=== PATIENT | female | born 1960 | race Caucasian/White ===

== ENCOUNTER 2017-01-27 15:29 | Inpatient (IN) | payer MEDICAID, OTHER ==
[~2017-01-27] VITALS: Ht 154.9 cm; Wt 96.7 kg
[~2017-01-27 15:29] MED LIST: LISI-661 PO; SERT50TA12 PO
[2017-01-27] MEDS ORDERED: TRAZ-144 PO (15:32)
[2017-01-27 16:13] LABS: BASOPHILS % (AUTO) 0.6 % (0.0-2.0); EOSINOPHILS % (AUTO) 0.5 % (1.0-6.0); HEMATOCRIT 36.3 % (36-46); HEMOGLOBIN 12.6 g/dL (12.0-16.0); LYMPHOCYTES # (AUTO) 1.7 K/uL (1.0-4.8); LYMPHOCYTES % (AUTO) 28.7 % (22.0-44.0); MEAN CORPUSCULAR HEMOGLOBIN 32.7 pg (26.0-34.0); MEAN CORPUSCULAR HGB CONC 34.8 G/dL (31.0-37.0); MEAN CORPUSCULAR VOLUME 94 fL (80-100); MONOCYTES # (AUTO) 0.4 K/uL (0.1-1.0); MONOCYTES % (AUTO) 7.3 % (2.0-9.0); NEUTROPHILS # (AUTO) 3.8 K/uL (1.8-7.7); NEUTROPHILS % (AUTO) 62.9 % (40.0-70.0); PLATELET COUNT (AUTO) 263 K/uL (150-450); RED BLOOD CELL COUNT(AUTO) 3.87 MIL/uL (4.00-5.20); RED CELL DISTRIBUTION WIDTH 14.9 % (11.5-14.5)
[2017-01-27 16:25] LABS: ANION GAP 11 mmol/L (8-16); CALCIUM, TOTAL 8.8 mg/dL (8.8-10.5); CARBON DIOXIDE 26 mmol/L (22-29); CHLORIDE 105 mmol/L (98-107); CREATININE 0.79 mg/dL (0.60-1.30); GLOMERULAR FILTR. RATE CALC > 60 mL/min (>60); POTASSIUM 3.9 mmol/L (3.5-5.1); SODIUM SERUM 142 mmol/L (136-145); UREA NITROGEN, BLOOD 13 mg/dL (7-18)
[2017-01-27 16:31] LABS: ALANINE AMINOTRANSFERASE 21 U/L (12-78); ALBUMIN 3.6 g/dL (3.4-5.0); ASPARTATE AMINOTRANSFERASE 14 U/L (15-37); BILIRUBIN,TOTAL 0.2 mg/dL (0.1-1.0); TOTAL PROTEIN, SERUM 7.6 g/dL (6.4-8.2)
[2017-01-27] MEDS ORDERED: LISI-662 PO (16:58)
[2017-01-27] MEDS ORDERED: HALOPERIDOL 5 MG TABLET PO PRN (17:00)
[2017-01-27] MEDS ORDERED: LORazepam 2 MG TABLET PO PRN (17:00)
[2017-01-27] MEDS ORDERED: ZOLPIDEM TARTRATE 10 MG TABLET PO PRN (17:00)
[2017-01-27 17:39] LABS: CHOL/HDL RATIO 3.4 (3.9-5.7); THYROID STIMULATING HORMONE 1.85 uIU/mL (0.36-3.74)
[2017-01-27 19:10] VITALS: BP 149/78
[2017-01-27] MEDS: BusPIRone HCL 5 MG TABLET PO SCH (19:10)
[2017-01-27 19:31] LABS: APPEARANCE,URINE CLEAR (CLEAR); GLUCOSE, URINE (UA) NEGATIVE (NEGATIVE); KETONES,URINE NEGATIVE (NEGATIVE); LEUKOCYTE ESTERASE ,URINE LARGE (NEGATIVE); OCCULT BLOOD,URINE NEGATIVE (NEGATIVE); PROTEIN,URINE NEGATIVE (NEGATIVE)
[2017-01-27 19:34] LABS: ADD UA MICROSCOPIC YES
[2017-01-27 19:48] LABS: RBC,URINE 0-2 /HPF (0-2); SQUAMOUS EPITHELIAL CELL,UR Few /LPF (None Seen); WBC,URINE 26-50 /HPF (0-5)
[2017-01-27] MEDS ORDERED: PNEUMOCOCCAL VACCINE POLYVALENT 0.5 ML VIAL [PPSV23] IM ONE (20:15)
[2017-01-27] MEDS: TraZODone HCL 150 MG TABLET PO SCH (20:22)
[2017-01-27] MEDS: OLANZapine 10 MG TABLET PO SCH (20:22)
[2017-01-28] MEDS: FLUoxetine HCL 20 MG CAPSULE PO SCH (09:08)
[2017-01-28] MEDS: LISINOPRIL 20 MG TABLET PO SCH (09:08)
[2017-01-28] MEDS: BusPIRone HCL 5 MG TABLET PO SCH ×3 (09:08→17:22)
[2017-01-28 09:32] VITALS: BP 171/83
[2017-01-28] MEDS: LEVOFLOXACIN 500 MG TABLET PO SCH (13:37)
[2017-01-28] MEDS: AmLODIPine BESYLATE 5 MG TABLET PO SCH (13:37)
[2017-01-28] MEDS ORDERED: IBUPROFEN 400 MG TABLET PO PRN (15:30)
[2017-01-28] MEDS ORDERED: LISINOPRIL 20 MG TABLET PO SCH (15:30)
[2017-01-28] MEDS ORDERED: ACETAMINOPHEN 325 MG TABLET PO PRN (15:30)
[2017-01-28 16:15] VITALS: BP 121/64
[2017-01-28] MEDS ORDERED: CIPROFLOXACIN HCL 500 MG TABLET PO SCH (17:00)
[2017-01-28] MEDS: TraZODone HCL 150 MG TABLET PO SCH (21:23)
[2017-01-28] MEDS: OLANZapine 10 MG TABLET PO SCH (21:24)
[2017-01-29] MEDS: BusPIRone HCL 5 MG TABLET PO SCH ×3 (08:29→16:37)
[2017-01-29] MEDS: LISINOPRIL 20 MG TABLET PO SCH (08:29)
[2017-01-29] MEDS: METOPROLOL SUCCINATE 25 MG ER TABLET PO SCH (08:30)
[2017-01-29] MEDS: AmLODIPine BESYLATE 5 MG TABLET PO SCH (08:30)
[2017-01-29] MEDS: LEVOFLOXACIN 500 MG TABLET PO SCH (08:30)
[2017-01-29] MEDS: FLUoxetine HCL 20 MG CAPSULE PO SCH (08:30)
[2017-01-29 08:56] VITALS: BP 150/74
[2017-01-29 16:44] VITALS: BP 108/66
[2017-01-29] MEDS: TraZODone HCL 150 MG TABLET PO SCH (20:10)
[2017-01-29] MEDS: OLANZapine 10 MG TABLET PO SCH (20:10)
[2017-01-30] MEDS: FLUoxetine HCL 20 MG CAPSULE PO SCH (08:13)
[2017-01-30] MEDS: AmLODIPine BESYLATE 5 MG TABLET PO SCH (08:13)
[2017-01-30] MEDS: BusPIRone HCL 5 MG TABLET PO SCH ×3 (08:13→16:35)
[2017-01-30] MEDS: LEVOFLOXACIN 500 MG TABLET PO SCH (08:13)
[2017-01-30] MEDS: LISINOPRIL 20 MG TABLET PO SCH (08:13)
[2017-01-30] MEDS: METOPROLOL SUCCINATE 25 MG ER TABLET PO SCH (08:14)
[2017-01-30 09:43] VITALS: BP 154/76
[2017-01-30 16:20] VITALS: BP 108/68
[2017-01-30] MEDS: TraZODone HCL 150 MG TABLET PO SCH (20:40)
[2017-01-30] MEDS: OLANZapine 10 MG TABLET PO SCH (20:41)
[2017-01-31 06:55] VITALS: BP 110/64
[2017-01-31] MEDS ORDERED: BISACODYL 5 MG EC TABLET PO PRN (07:15)
[2017-01-31] MEDS ORDERED: LACTULOSE 20 GM/30 ML SOLUTION UDCUP PO PRN (07:15)
[2017-01-31] MEDS: AmLODIPine BESYLATE 5 MG TABLET PO SCH (09:17)
[2017-01-31] MEDS: LISINOPRIL 20 MG TABLET PO SCH (09:18)
[2017-01-31] MEDS: DOCUSATE SODIUM 250 MG CAPSULE PO SCH ×2 (09:18→16:35)
[2017-01-31] MEDS: LEVOFLOXACIN 500 MG TABLET PO SCH (09:18)
[2017-01-31] MEDS: BusPIRone HCL 5 MG TABLET PO SCH ×3 (09:18→16:35)
[2017-01-31] MEDS: METOPROLOL SUCCINATE 25 MG ER TABLET PO SCH (09:18)
[2017-01-31] MEDS: FLUoxetine HCL 20 MG CAPSULE PO SCH (09:18)
[2017-01-31 10:00] VITALS: BP 116/56
[2017-01-31 18:40] VITALS: BP 106/56
[2017-01-31] MEDS: TraZODone HCL 150 MG TABLET PO SCH (21:41)
[2017-01-31] MEDS: OLANZapine 10 MG TABLET PO SCH (21:41)
[2017-02-01 08:00] VITALS: BP 112/63
[2017-02-01] MEDS: LISINOPRIL 20 MG TABLET PO SCH (09:30)
[2017-02-01] MEDS: FLUoxetine HCL 20 MG CAPSULE PO SCH (09:30)
[2017-02-01] MEDS: AmLODIPine BESYLATE 5 MG TABLET PO SCH (09:30)
[2017-02-01] MEDS: DOCUSATE SODIUM 250 MG CAPSULE PO SCH (09:30)
[2017-02-01] MEDS: BusPIRone HCL 5 MG TABLET PO SCH ×2 (09:30→12:55)
[2017-02-01] MEDS: METOPROLOL SUCCINATE 25 MG ER TABLET PO SCH (09:31)
[2017-02-01] MEDS ORDERED: OLAN10TA3 PO (13:11)
[2017-02-01] MEDS ORDERED: BUSP5TAB20 PO (13:11)
[2017-02-01] MEDS ORDERED: FLUO-191 PO (13:12)
[2017-02-01] MEDS ORDERED: METO25XL PO (13:13)
[2017-02-01] MEDS ORDERED: DOCU250C91 PO (13:14)
== END 2017-02-01 14:35 | disposition home or self-care (01) | DRG 753 ==
LOC: EMS 15:30 → 3EI 18:28
DX: F31.4 Bipolar disorder, current episode depressed, severe, without psychotic features (principal); R45.851 Suicidal ideations; I10 Essential (primary) hypertension; N39.0 Urinary tract infection, site not specified; Z82.49 Family history of ischemic heart disease and other diseases of the circulatory system; Z91.5 Personal history of self-harm; Z88.0 Allergy status to penicillin; Z90.49 Acquired absence of other specified parts of digestive tract
CPT/HCPCS: 84439; 84443; 87086; 99285; G0480